=== PATIENT | male | born 1975 | race Caucasian/White ===

== ENCOUNTER 2018-01-18 15:27 | Emergency (ER) | payer OTHER ==
[2018-01-18 15:50] VITALS: BP 145/94
--- NOTE | 2018-01-18 16:25 | UC ---
General HPI - HPI Summary HPI Summary: 42 yo with PMH of DVT, HLD and GERD who c/o pain from neck to shoulder and down back" on the right side, for two days. Has rash on the right shoulder that poe but does not itch for a few days. - History of Current Complaint Chief Complaint: UCBackPain Stated Complaint: KNOT IN NECK PAIN IN BACK Time Seen by Provider: 01/18/18 16:04 Pain Intensity: 8 - Allergy/Home Medications Allergies/Adverse Reactions: Allergies Allergy/AdvReac Type Severity Reaction Status Date / Time Penicillins Allergy Hives Verified 01/18/18 15:51 Home Medications: Home Medications Atorvastatin* [Lipitor*] 20 mg PO 2100 01/18/18 [History Confirmed 01/18/18] Omeprazole CAP* [Prilosec CAP* 20 MG] 20 mg PO BEDTIME 01/18/18 [History Confirmed 01/18/18] Warfarin TAB(*) [Coumadin TAB(*)] 7.5 mg PO DAILY 01/18/18 [History Confirmed ] PMH/Surg Hx/FS Hx/Imm Hx - Additional Past Medical History Additional PMH: History of DVT Endocrine History: Dyslipidemia GI/ History: Gastroesophageal Reflux - Surgical History Surgical History: None - Social History Alcohol Use: Rare Substance Use Type: None Smoking Status (MU): Light Every Day Tobacco Smoker Review of Systems Skin: Rash Musculoskeletal: Myalgia All Other Systems Reviewed And Are Negative: Yes Physical Exam - Summary Physical Exam Summary: rash on right side of neck and right anterior shoulder with vesicles in clusters along dermatomal distribution Triage Information Reviewed: Yes Appearance: Well-Appearing, No Pain Distress, Obese Vital Signs: Initial Vital Signs Temp 98.3 F 01/18/18 15:44 Pulse 73 01/18/18 15:44 Resp 16 01/18/18 15:44 BP 145/94 01/18/18 15:44 Pulse Ox 98 01/18/18 15:44 Vital Signs Reviewed: Yes Eyes: Positive: Conjunctiva Clear ENT: Positive: Hearing grossly normal, Pharynx normal Neck: Positive: Supple, Nontender, Enlarged Nodes @ - right posterior triangle and infra mandibular area Respiratory: Positive: Chest non-tender, Lungs clear, Normal breath sounds Cardiovascular: Positive: RRR, No Murmur, Pulses Normal, Brisk Capillary Refill Abdomen Description: Positive: Nontender Bowel Sounds: Positive: Present Musculoskeletal: Positive: Strength Intact, ROM Intact, No Edema Skin: Positive: rashes Course/Dx - Course Course Of Treatment: Herpes zoster, start medications for pain and antiviral treatment LALA , f/u with PCP next week. Monitor elevation of BP and INR on treatment with warfarin - Differential Dx - Multi-Symptom Provider Diagnoses: elevated BP without HTN. Herpes zoster Discharge - Sign-Out/Discharge Documenting (check all that apply): Patient Departure All imaging exams completed and their final reports reviewed: No Studies - Discharge Plan Condition: Stable Disposition: HOME Patient Education Materials: Shingles (ED), Valacyclovir (By mouth), Lidocaine (On the skin), Nortriptyline (By mouth), Hydrocodone/Acetaminophen (By mouth) Referrals: Bakari Mercado MD [Primary Care Provider] - - Billing Disposition and Condition Condition: STABLE Disposition: Home
== END 2018-01-18 16:48 | disposition home or self-care (01) ==
LOC: UCEAST 15:27
DX: B02.9 Zoster without complications (principal); R03.0 Elevated blood-pressure reading, without diagnosis of hypertension; F17.200 Nicotine dependence, unspecified, uncomplicated; E78.5 Hyperlipidemia, unspecified; K21.9 Gastro-esophageal reflux disease without esophagitis; Z88.0 Allergy status to penicillin; Z79.01 Long term (current) use of anticoagulants; Z79.899 Other long term (current) drug therapy
CPT/HCPCS: 99212; G0463